=== PATIENT | male | born 1990 | race Caucasian/White ===

== ENCOUNTER 2019-01-30 15:09 | Emergency (ER) | payer OTHER ==
[2019-01-30 15:23] VITALS: BP 130/89
--- NOTE | 2019-01-30 16:08 | EDPHY ---
H & P Stated Complaint: stepped on glass l foot last saturday now with ? hematoma at site Time Seen by Provider: 01/30/19 15:30 HPI/ROS: Chief Complaint: Foot ecchymosis, paresthesias HPI: The patient presents to the ED after he noticed a small area of ecchymosis on the plantar aspect of his left foot and has developed some mild paresthesias. The patient did step on a piece of glass last week. He was seen at urgent care and had x-rays which demonstrated no evidence of an obvious foreign body. He went back to urgent care today and was referred to the ED for further evaluation. REVIEW OF SYSTEMS: Neuro: no headache, numbness, weakness Musculoskeletal: as above Skin: no abrasion or lacerations Neuro: As above Source: Patient - Personal History Current Tetanus Diphtheria and Acellular Pertussis (TDAP): Yes - Medical/Surgical History Hx Asthma: No Hx Chronic Respiratory Disease: No Hx Diabetes: No Hx Cardiac Disease: No Hx Renal Disease: No Hx Cirrhosis: No Hx Alcoholism: No Hx HIV/AIDS: No Hx Splenectomy or Spleen Trauma: No Other PMH: denies - Social History Smoking Status: Never smoked - Physical Exam Exam: General: No acute distress Left foot: 1 cm by 1 cm area of ecchymosis noted in the soft tissues on the plantar aspect of the foot adjacent to his prior laceration. Skin: No erythema Neuro: Sensation intact to light touch Vascular: Normal capillary refill Constitutional: Initial Vital Signs Temperature (C) 37 C 01/30/19 15:19 Heart Rate 75 01/30/19 15:19 Respiratory Rate 18 01/30/19 15:19 Blood Pressure 130/89 H 01/30/19 15:19 O2 Sat (%) 97 01/30/19 15:19 O2 Delivery Mode Room Air Allergies/Adverse Reactions: No Known Allergies Allergy (Unverified 01/30/19 15:19) Home Medications: Medication Instructions Recorded NK [No Known Home Meds] 01/30/19 Medical Decision Making ED Course/Re-evaluation: Patient is developed a small area of ecchymosis in the setting of a recent cut from glass. There is no clinical evidence of an infection. The patient is nontoxic well-appearing. The patient will be advised to observe his symptoms for the next 10-14 days. He should return to the ED for any increased pain, redness or swelling. The patient will follow up with Orthopedic surgery for any lingering concerns. Departure - Departure Disposition: Home, Routine, Self-Care Clinical Impression: Contusion of left foot Condition: Good Instructions: Foot Contusion (ED) Additional Instructions: 1. Return to the ED for any increasing pain, redness or fever. 2. I do believe your symptoms should improve over the next 10-14 days. Please follow up with the orthopedic surgeon you have been referred to for any markedly worsening symptoms or symptoms which persists past 2 weeks. Referrals: Brad Mustafa MD [Medical Doctor] - As per Instructions
== END 2019-01-30 16:17 | disposition home or self-care (01) ==
DX: S90.32XD Contusion of left foot, subsequent encounter (principal); R58 Hemorrhage, not elsewhere classified